=== PATIENT | female | born 1960 | race Caucasian/White ===

== ENCOUNTER 2020-05-15 15:48 | Emergency (ER) | payer MEDICAID ==
[~2020-05-15] VITALS: Ht 162.6 cm; Wt 59.0 kg
--- NOTE | 2020-05-15 16:07 | NUR ---
PT SEEN AND EXAMINED BY .
[2020-05-15 16:09] VITALS: BP 133/68
[2020-05-15 16:49] LABS: APPEARANCE,URINE CLEAR (CLEAR); BILIRUBIN,URINE NEGATIVE (NEGATIVE); BLOOD, URINE TRACE-INTA Ery/uL (NEGATIVE); COLOR,URINE YELLOW (YELLOW); KETONES,URINE NEGATIVE (NEGATIVE); LEUKOCYTE ESTERASE ,URINE LARGE (NEGATIVE); NITRITE, URINE NEGATIVE (NEGATIVE); PROTEIN,URINE NEGATIVE (NEGATIVE); UGLUCOSE NEGATIVE (NEGATIVE); UROBILINOGEN,URINE 0.2 EU/dL (0.2)
[2020-05-15 16:59] LABS: BACTERIA,URINE 1+ /HPF (None Seen); SQUAMOUS EPITHELIAL CELL,UR 0-2 /HPF (None Seen)
--- NOTE | 2020-05-15 17:33 | NUR ---
Patient discharged to home in stable condition. Written and verbal after care instructions given. Patient verbalizes understanding of instruction.
== END 2020-05-15 17:33 | disposition home or self-care (01) ==
LOC: ER 15:56
DX: N39.0 Urinary tract infection, site not specified (principal); I10 Essential (primary) hypertension; Z88.6 Allergy status to analgesic agent
CPT/HCPCS: 81000-TC; 87086-TC

== ENCOUNTER 2020-05-23 18:43 | Emergency (ER) | payer MEDICAID ==
[~2020-05-23] VITALS: Ht 162.6 cm; Wt 64.4 kg
[2020-05-23 19:33] LABS: APPEARANCE,URINE Clear (CLEAR); BILIRUBIN,URINE Negative (NEGATIVE); BLOOD, URINE Trace-lysed Ery/uL (NEGATIVE); COLOR,URINE Yellow (YELLOW); KETONES,URINE Negative (NEGATIVE); LEUKOCYTE ESTERASE ,URINE Trace (NEGATIVE); NITRITE, URINE Negative (NEGATIVE); PH,URINE 5.5 (5.0-8.0); PROTEIN,URINE Negative (NEGATIVE); UGLUCOSE Negative (NEGATIVE); UROBILINOGEN,URINE 0.2 EU/dL (0.2)
[2020-05-23 19:42] LABS: BACTERIA,URINE Few /HPF (None Seen); SQUAMOUS EPITHELIAL CELL,UR Few /HPF (None Seen)
[2020-05-23 19:43] LABS: RBC,URINE 0-2 /HPF (0-2)
--- NOTE | 2020-05-23 19:46 | NUR ---
BIBS FROM HOME TO ER BED 12. AAOX4. NOT IN REPS DISTRESS. AMBULATORY. CAME IN FOR ABDOMINAL PAIN SINCE SATURDAY LAST WEEK AFTER SHE STARTED TAKING MACROBID FOR UTI. PT RATES HER PAIN 6/10. DENIES NAUSEA, VOMMITING NOR DIARRHEA. MD WAS AT THE BEDSIDE FOR EVAL. ORDERS RECEIVED, NOTED AND CARRIED OUT
[2020-05-23 19:48] LABS: BASOPHILS % (AUTO) 0.5 % (0.0-2.0); EOSINOPHILS % (AUTO) 3.1 % (0.0-6.0); HEMATOCRIT 41 % (33-45); HEMOGLOBIN 13.5 g/dL (11.5-14.8); LYMPHOCYTES % (AUTO) 38.2 % (20.0-44.0); MEAN CORPUSCULAR HGB CONC 33 g/dl (31.0-36.0); MEAN CORPUSCULAR VOLUME 82 fL (82-100); MONOCYTES # (AUTO) 0.6 /CMM (0.1-1.30); MONOCYTES % (AUTO) 7.8 % (2.0-12.0); NEUTROPHILS # (AUTO) 3.9 /CMM (1.8-8.9); NEUTROPHILS % (AUTO) 50.4 % (43.0-81.0); PLATELET COUNT (AUTO) 174 /CMM (150-450); RED BLOOD CELL COUNT(AUTO) 4.98 MIL/uL (4.0-5.2); WHITE BLOOD COUNT (AUTO) 7.8 K/uL (4.3-11.0)
[2020-05-23 20:08] LABS: ALBUMIN 3.5 g/dL (3.4-5.0); BILIRUBIN,DIRECT 0.1 mg/dL (0.0-0.2); BILIRUBIN,TOTAL 0.5 mg/dL (0.2-1.0); CALCIUM, SERUM 8.9 mg/dL (8.5-10.1); CREATININE 0.8 mg/dL (0.6-1.3); POTASSIUM 3.7 mmol/L (3.5-5.1)
[2020-05-23 21:44] VITALS: BP 148/72
--- NOTE | 2020-05-23 21:44 | NUR ---
Patient discharged to home in stable condition. Written and verbal after care instructions given. Patient verbalizes understanding of instruction.IV removed. Catheter intact and site benign. Pressure and 4x4 applied to site. No bleeding noted. Pt ambulatory with a steady gait
== END 2020-05-23 21:45 | disposition home or self-care (01) ==
LOC: ER 18:45
DX: D25.9 Leiomyoma of uterus, unspecified (principal); E03.9 Hypothyroidism, unspecified; I10 Essential (primary) hypertension; I47.1 Supraventricular tachycardia; Z88.6 Allergy status to analgesic agent
CPT/HCPCS: 36415; 76856-TC; 80048-TC; 80076-TC; 81000-TC; 83690-TC; 85025-TC

== ENCOUNTER 2021-04-17 18:47 | Emergency (ER) | payer MEDICAID ==
[~2021-04-17] VITALS: Ht 165.1 cm; Wt 58.1 kg
[2021-04-17 19:12] VITALS: BP 130/71
[2021-04-17] MEDS ORDERED: DIPH25CA51 PO (19:31)
[2021-04-17] MEDS ORDERED: TRIA15CR2 TP (19:31)
== END 2021-04-17 19:37 | disposition home or self-care (01) ==
LOC: ER 18:49
DX: T63.481A Toxic effect of venom of other arthropod, accidental (unintentional), initial encounter (principal); I10 Essential (primary) hypertension; Z88.6 Allergy status to analgesic agent; Y92.89 Other specified places as the place of occurrence of the external cause